=== PATIENT | male | born 1960 | race Caucasian/White ===

== ENCOUNTER 2016-11-09 16:13 | Outpatient (CLI) | payer OTHER ==
--- NOTE | 2016-11-09 16:48 | DIAGNOSTIC IMAGING REPORT ---
PROCEDURE: XR THORACIC SPINE 3 VIEWS INDICATION: SEVERE LOWER THORACIC PAIN TECHNIQUE: Three views. COMPARISON: None. FINDINGS: Osteoarthritis with osteophytes and disc space narrowing. No evidence of an acute process or fracture. Mild levoscoliosis. IMPRESSION: 1. Osteoarthritis. No fractures.
== END 2016-11-09 23:00 ==
LOC: XR SRH 16:13
DX: M47.814 Spondylosis without myelopathy or radiculopathy, thoracic region (principal)